=== PATIENT | male | born 1975 | race Caucasian/White ===

== ENCOUNTER 2017-11-23 12:49 | Outpatient (RCR) | payer BC, OTHER ==
[~2017-11-23 12:49] MED LIST: AMBIEN 10MG10 MG PO; CIALIS5 MG PO; EXFORGE HCT 5 M1 TAB PO; LEXAPRO20 MG PO; LIPITOR 80MG80 MG PO
== END 2017-11-28 10:02 | disposition home or self-care (01) ==
LOC: MKS.ESL.PT 12:49
DX: Z47.89 Encounter for other orthopedic aftercare (principal)

== ENCOUNTER 2017-12-27 14:00 | Outpatient (RCR) | payer BC, OTHER | END 2017-12-28 08:37 | disposition home or self-care (01) | LOC: MKS.ESL.PT 14:00 | DX: Z47.89 Encounter for other orthopedic aftercare (principal); M25.562 Pain in left knee ==

== ENCOUNTER → 2019-04-18 | Outpatient (CLI) | payer BC | LOC: BHSO 11:03 | DX: F31.81 Bipolar II disorder (principal) ==

== ENCOUNTER → 2019-05-01 | Outpatient (CLI) | payer BC | LOC: BHSO 14:02 | DX: F33.1 Major depressive disorder, recurrent, moderate (principal) ==

== ENCOUNTER → 2019-05-22 | Outpatient (CLI) | payer BC | LOC: BHSO 15:16 | DX: F31.81 Bipolar II disorder (principal) | CPT/HCPCS: G0463 ==

== ENCOUNTER → 2019-06-05 | Outpatient (CLI) | payer BC | LOC: BHSO 10:06 | DX: F33.1 Major depressive disorder, recurrent, moderate (principal) ==

== ENCOUNTER → 2019-07-11 | Outpatient (CLI) | payer BC | LOC: BHSO 10:03 | DX: F33.1 Major depressive disorder, recurrent, moderate (principal) ==

== ENCOUNTER → 2019-07-25 | Outpatient (CLI) | payer BC | LOC: BHSO 10:05 | DX: F31.81 Bipolar II disorder (principal) | CPT/HCPCS: G0463 ==

== ENCOUNTER → 2019-08-22 | Outpatient (CLI) | payer BC | LOC: BHSO 10:04 | DX: F33.1 Major depressive disorder, recurrent, moderate (principal) ==

== ENCOUNTER → 2020-10-28 | Outpatient (CLI) | payer BC | LOC: COL.PUL 07:56 | DX: R06.09 Other forms of dyspnea (principal); Z87.891 Personal history of nicotine dependence ==

== ENCOUNTER → 2021-02-17 | Outpatient (CLI) | payer BC | LOC: COL.VAS 13:11 | DX: I51.7 Cardiomegaly (principal) ==